=== PATIENT | female | born 1950 ===

== ENCOUNTER 2023-11-24 13:14 | Outpatient (CLI) | payer MEDICARE, BC, SELFPAY ==
--- OUTSIDE RECORDS SUMMARY | 2023-11-24 13:18 | XMS_ITS | Clinical Summary ---
[facility] Address [address] [place] [address] Care Team Providers Care Magneto Specialist Name Role Phone Arnel Dietz MD Primary Care Provider [phone] Source Comments You are receiving this document as you are listed as the primary care provider,follow-up provider, or the patient has been referred to you for consultation.This is in compliance with the Medicare and[facility] E[facility] Incentive [facility],which states Providers who transition their patient to another setting of careor provider of care or refers their patient to another provider of care shouldprovide summary care record for each transition of care or referral. [facility] Allergies No known active allergies Medications Medication Sig Dispensed Refills Start Date End Date Status alendronate (FOSAMAX) 70 MG tablet TAKE 1 TABLET BY MOUTH ONCE A WEEK FOR 28 DAYS 02/16/2020 Active sertraline (ZOLOFT) 50 MG tablet Take 50 mg by mouth daily. Active rosuvastatin (CRESTOR) 10 MG tablet Take 10 mg by mouth daily. Active Active Problems No known active problems Social History Tobacco Use Types Packs/Day Years Used Date Smoking Tobacco: Former Smokeless Tobacco: Never Sex and Gender Information Value Date Recorded Sex Assigned at Not on file Gender Identity Not on file Sexual Orientation Not on file Last Filed Vital Signs Vital Sign Reading Time Taken Comments Blood Pressure - - Pulse - - Temperature - - Respiratory Rate - - Oxygen Saturation - - Inhaled Oxygen Concentration - - Weight - - Height 149.9 cm (4' 11) 03/27/2020 10:47 AM BATCH WEIGHER Body Mass Index - - Plan of Treatment Health Maintenance Due Date Last Done Comments Colon Cancer Screening Plan Due 1950 Hep C Screening (Preventive Services) 1950 Medicare Annual Wellness Visit 1950 Mammogram 1950 Cholesterol 1997 Zoster/Shingles (1 of 2) 2002 Dexa 2017 COVID-19 Vaccine (3 - season) 2023 05/25/2020, 05/03/2020 Influenza (#1) 2023 11/15/2019, 01/30, 01/15/2018, Additional history exists RSV (1 - 1-dose 75+ series) 2027 DTaP/Tdap/Td (3 - Tdap) 06/27/2027 06/27/19 18, 04/15/2007, 10/18/1997 Pneumococcal 65+ Yrs Completed 09/08/2018, 06/27/19 18 HepA Aged Out No longer eligi ble based on patient's age to complete this topic HepB Aged Out No longer eligi ble based on patient's age to complete this topic Hib Aged Out No longer eligi ble based on patient's age to complete this topic IPV (Polio) Aged Out No longer eligi ble based on patient's age to complete this topic MCV4 Aged Out No longer eligi ble based on patient's age to complete this topic Care Teams Magneto Specialist Relationship Specialty Start Date End Date Arnel Dietz MD [address] [place] [address] PCP - General Family Practice 03/23/20
--- OUTSIDE RECORDS SUMMARY | 2023-11-24 13:18 | XMS_ITS | Clinical Summary ---
Author Organization [facility] Address [place], [place] [address] Care Team Providers Care Cornice Maker Name Role Phone Arnel Dietz MD Primary Care Provider [phone] Allergies No known active allergies Medications Medication Sig Dispensed Refills Start Date End Date Status rosuvastatin (CRESTOR) 10 mg tablet TAKE 1 TABLET BY MOUTH ONCE DAILY AT BEDTIME FOR 90 DAYS for 90 days Active sertraline (ZOLOFT) 50 mg tablet Take 1 Tablet by mouth once daily. Active alendronate (FOSAMAX) 70 mg tablet Take 1 tablet by mouth once a week for 84 Active cholecalciferol, Vitamin D3, 2,000 unit tablet 1 tab(s) orally once a day for 30 day(s) Active cranberry fruit extract (CRANBERRY CONCENTRATE ORAL) Take by mouth. Act augusto kristan Deleon/Brajwinder barclay (PROBIOTIC ACIDOPHILUS BEADS ORAL) Take by mouth. Active Social History Tobacco Use Types Packs/Day Years Used Date Smoking Tobacco: Former Cigarettes Smokeless Tobacco: Never Tobacco Cessation:Counseling Given: Not Answered Sex and Gender Information Value Date Recorded Sex Assigned at Not on file Gender Identity Not on file Sexual Orientation Not on file Obstetrics History Last Filed Vital Signs Vital Sign Reading Time Taken Comments Blood Pressure 119/64 12/14/2022 11:55 AM CDT Pulse 64 12/14/2022 11:55 AM CDT Temperature 36.5 ??C (97.7 ??F) 12/14/2022 1 1:55 AM CDT Respiratory Rate 16 12/14/2022 11:5 5 AM CDT Oxygen Saturation 98% 12/14/2022 11: 55 AM CDT Inhaled Oxygen Concentration - - Weight 70.2 kg (154 lb 11.2 oz) 023 12:00 PM CDT Height - - Body Mass Index - - Plan of Treatment Health Maintenance Due Date Last Done Comments Tdap 1963 Depression screening for age 12+ 1964 BMI (ht and wt on same day) for age 18+ 1970 Hepatitis C screening for ag e 18-79 1970 Tetanus booster 1972 Colonoscopy through age 75 1997 Lipids for age 45-75 1997 Mammogram for age 45-75 1997 Zoster (shingles) series for age 50+ (1 of 2) 2002 DEXA/DXA scan for age 65+ 2017 Pneumococcal series for age 65+ (1 of 1 - PCV) 2017 COVID-19 vaccine series (2023- season) 2023 07/29/2022, 03/10/2022, 06/14/2021, Additional history exists Influenza for age 65+ 11/01/2023 Care Teams Cornice Maker Relationship Specialty Start Date End Date Arnel Dietz MD [address] [place] [address] PCP - General Family Practice 12/14/22
== END 2023-11-24 13:15 | disposition home or self-care (01) ==
PROVIDERS: PCP Emergency Medicine; Visit Provider Emergency Medicine
DX: M81.0 Age-related osteoporosis without current pathological fracture (principal); E78.2 Mixed hyperlipidemia
CPT/HCPCS: 80048; 80061; 82306

== ENCOUNTER 2023-12-04 10:23 | Outpatient (CLI) | payer MEDICARE, BC, SELFPAY ==
--- OUTSIDE RECORDS SUMMARY | 2023-12-04 10:26 | XMS_ITS | Clinical Summary ---
[facility] Address [address] [address] Care Team Providers Care Occupational Therapy Manager Name Role Phone Arnel Dietz MD Primary Care Provider [phone] Source Comments You are receiving this document as you are listed as the primary care provider,follow-up provider, or the patient has been referred to you for consultation.This is in compliance with the Medicare and[facility] EHR Incentive Program,which states Providers who transition their patient to another setting of careor provider of care or refers their patient to another provider of care shouldprovide summary care record for each transition of care or referral. [facility] ([facility]) Allergies No known active allergies Medications Medication [...] 149.9 cm (4' 11) 03/27/2020 10:47 AM MANAGER RETAIL Body Mass Index - - Plan of [...] age to complete this topic Care Teams Occupational Therapy Manager Relationship Specialty Start Date End Date Arnel Dietz MD [address] [place] [address] PCP - General Family Practice 03/23/20
--- OUTSIDE RECORDS SUMMARY | 2023-12-04 10:27 | XMS_ITS | Clinical Summary ---
Author Organization [facility] Address [place], [place] [address] Care Team Providers Care Geography Teacher Name Role Phone Arnel Dietz MD Primary Care Provider [phone] Allergies No known active allergies Medications Medication [...] Influenza for age 65+ 11/01/2023 Care Teams Geography Teacher Relationship Specialty Start Date End Date Arnel Dietz MD [address] [place] [address] PCP - General Family Practice 12/14/22
--- NOTE | 2023-12-04 11:00 | CRLHL7_ITS ---
For Patients: As a result of the Century Cures Act, medical imaging exams and procedure reports are released immediately into your electronic medical record. You may view this report before your referring provider. If you have questions, please contact your health care provider. Indication: Lung cancer screening examination, former smoker with greater than 100 pack-year history Technique: Noncontrast low-dose CT of the chest with multiplanar reformats. Comparison: None Findings: Lungs: A few tiny 1 millimeter micronodules are present with no concerning nodule appreciated. Mild atelectasis and/or scarring. No consolidation. No effusion. No pneumothorax. Mediastinum: Trace pericardial effusion. Trace calcified aortic atherosclerosis. Lymph nodes: No gross lymphadenopathy. Upper abdomen: Unremarkable. Soft tissues: Unremarkable. Bones: Minimal degenerative changes. Impression: A few tiny 1 millimeter micronodules are present with no concerning nodule appreciated. Continued annual surveillance screening recommended (Lung-RADS 2). Please note that all CT scans at this facility use dose modulation, iterative reconstruction, and/or weight-based dosing when appropriate to reduce radiation dose to as low as reasonably achievable. Dictated by Danny Lopez MD @ 12/07/2023 8:46:25 PM (Electronically Signed)
== END 2023-12-04 10:24 | disposition home or self-care (01) ==
LOC: CT 10:24
PROVIDERS: PCP Emergency Medicine; Visit Provider Emergency Medicine
DX: Z12.2 Encounter for screening for malignant neoplasm of respiratory organs (principal); R91.8 Other nonspecific abnormal finding of lung field; F17.210 Nicotine dependence, cigarettes, uncomplicated; Z87.891 Personal history of nicotine dependence
CPT/HCPCS: 71271

== ENCOUNTER 2024-04-13 13:32 | Outpatient (CLI) | payer MEDICARE, BC, SELFPAY | END 2024-04-13 13:33 | disposition home or self-care (01) | LOC: RAD 13:35 | PROVIDERS: PCP Emergency Medicine; Visit Provider Emergency Medicine | DX: Z12.31 Encounter for screening mammogram for malignant neoplasm of breast (principal); Z13.820 Encounter for screening for osteoporosis; M81.0 Age-related osteoporosis without current pathological fracture | CPT/HCPCS: 77063; 77067; 77080 ==

== ENCOUNTER 2024-10-25 08:30 | Outpatient (RCR) | payer MEDICARE, BC, SELFPAY ==
--- NOTE | 2024-08-01 12:59 | OT.OPOE ---
OT Outpatient Ortho Eval OT Outpatient Ortho Eval* Start: 08/01/24 07:40 Freq: Status: Active Protocol: Document 08/01/24 07:42 JANNETTEOneyda (Rec: 08/01/24 12:57 MISTI [id number]) E-signed By Sydni Cueto OTR/L, CLT OT OP Ortho Eval Details Complexity Complexity Medium Insurance Information Insurance Blue Cross/Blue Shield,Medicare B Information Outpatient History/Precautions Current Condition/Medical Diagnosis Referring Provider Dr. Barak Camargo Medical Diagnoses S62.015A Closed nondisplaced fracture of distal pole of scaphoid bone of left wrist, initial encounter S62. 015A Treatment Diagnosis M25.632, Stiffness of L wrist M25.532, Pain in L wrist Date of Onset DOI 05/23/24 Other Precautions Patient was instructed return to Ortho office for follow-up in 6 weeks, at which time we will obtain repeat x-rays of the left wrist and scaphoid. Ortho Provider's Plan (from note on 07/18/24): Fracture is healing as expected. Wrist range of motion is limited as is to be expected. Thumb spica cast was discontinued today. Recommend occupational therapy and home exercise program for wrist range of motion exercises. Referral for occupational therapy was submitted today. She was instructed to use removable thumb spica brace for activities for the next few weeks. Other Conditions PMH includes but is not limited to: Muscle strain of right forearm (Acute) S56.911A - Strain of unspecified muscles, fascia and tendons at forearm level, right arm, initial encounter (ICD-10) Closed fracture of scaphoid of left wrist (Acute) S62.002A - Unspecified fracture of navicular [scaphoid] bone of left wrist, initial encounter for closed fracture (ICD-10) Fracture of scaphoid bone of left wrist (Acute) S62.002A - Unspecified fracture of navicular [scaphoid] bone of left wrist, initial encounter for closed fracture (ICD-10) Agatston coronary artery calcium score less than 100 ( Acute) 0 R93.1 - Abnormal findings on diagnostic imaging of heart and coronary circulation (ICD-10) Right foot pain (Acute) M79.671 - Pain in right foot (ICD-10) Family history of coronary artery disease (Acute) father bro Z82.49 - Family history of ischemic heart disease and other diseases of the circulatory system (ICD-10) Smoking greater than 20 pack years (Acute) age 21-66 x 1/2 ppd F17.210 - Nicotine dependence, cigarettes, uncomplicated (ICD-10) Former cigarette smoker (Acute) Z87.891 - Personal history of nicotine dependence (ICD- 10) Recurrent UTI (Acute) cranberry gel, N39.0 - Urinary tract infection, site not specified ( ICD-10) Eczema (Acute) L30.9 - Dermatitis, unspecified (ICD-10) Hyperlipidemia (Acute) Increase rosuvastatin December 2023 E78.5 - Hyperlipidemia, unspecified (ICD-10) Anxiety (Acute) F41.9 - Anxiety disorder, unspecified (ICD-10) Osteoporosis (Acute) M81.0 - Age-related osteoporosis without current pathological fracture (ICD-10) Depression (Acute) F32.A - Depression, unspecified (ICD-10) History of colon polyps (Acute) Home Medications: alendronate 70 mg PO QWEEK cholecalciferol (vitamin D3) 50 mcg PO QDAY ibuprofen (Advil) 400 mg PO Q8H rosuvastatin 20 mg PO QDAY sertraline 50 mg PO QDAY Medical/Functional History Medical History Yes Reviewed Prior Level of Patient lives alone, enjoys going to her camp [place] in [place] the summer [place] -Thursday at [facility] 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 Fully Indep with self cares and IADLs Social History Employment Status Retired Current Occupation semi retired, patient is self employed selling [employer] Critical Job Demands Pull,Lift,Overhead Reach Hobbies Spending time with her 3 adult children, 2 grandchildren Fitness None Ortho Subjective Subjective Subjective This patient is a 74-year-old [id number] female presenting to the Rehab clinic after a left scaphoid fracture that she developed after falling onto her outstretched hand on 05/23/24. She was treated conservatively with a thumb spica cast which was removed on 07/18/24 at her follow up Ortho visit. Now that patient is 10 weeks post from her initial injury, her deficits include: lack of AROM, muscle atrophy ( weakness in the L hand), difficulty with fine motor and coordination in the L hand, rotation movements with the L hand and anything that involves lifting/carrying with the L UE. 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 This work is very dexterity focused and bilateral heavy. Patient's personal goal is to resume normal every day tasks without pain and gain strength in the non dominant hand as it presently is very weak ( 43 lbs less social science research assistant strength than the R unaffected side). Patient reports having Tylenol daily (3x) for pain relief. Pain Assessment Pain Pain Yes Pain Comments 5/10 in the L hand/wrist with activity/movement Range of Motion and Strength Shoulder Range of Motion and Strength Shoulder Range of no impairments Motion and Strength Elbow/Forearm Range of Motion and Strength Elbow/Forearm Range no impairments of Motion and Strength Wrist Range of Motion and Strength Wrist Range of 35 degrees of L wrist flexion (in the R patient has 65 Motion and Strength degrees of flexion) 48 degrees in the L wrist for extension ( in the R patient has 75 degrees of extension) L supination 70 degrees L pronation is full L ulnar deviation is 18 degrees L radial deviation is 15 degrees Hand/Finger/Thumb Range of Motion and Strength Hand/Finger/Thumb EXAMINATION: Range of Motion and Left wrist was examined. No significant soft tissue Strength swelling of his deformity-very mild. No tenderness palpation of the anatomic snuffbox, scaphoid tubercle, but she did have some tenderness at the dorsum of the L wrist. Wrist range of motion was quite limited (see measurements in box above). Radial, ulnar, median, and axillary motor and sensory were intact. Thumb extension, thumb opposition, thumb IP flexion, intrinsics are all intact. Fingers are all warm and well perfused. Hand Pinch/Pig Sticker Strength Hand Pinch/Pig Sticker Strength Hand Pinch/Pig Sticker Left Hand,Right Hand Strength Left Hand Pig Sticker Strength 10 Position 1 in Elbow Flexion (lbs) Pig Sticker Strength 11 Position 2 in Elbow Extension (lbs) Lateral Pinch 4 Strength (lbs) Three Point Pinch ( 3 lbs) Tip Pinch Strength ( 3 lbs) Right Hand Pig Sticker Strength 53 Position 1 in Elbow Flexion (lbs) Pig Sticker Strength 55 Position 2 in Elbow Extension (lbs) Lateral Pinch 12 Strength (lbs) Three Point Pinch ( 9 lbs) Tip Pinch Strength ( 7.5 lbs) Upper Extremity Special Tests Upper Extremity Special Tests Comments Comments IMAGING: AP, lateral, oblique, and scaphoid views of left wrist performed in clinic today (07/18/2024) were reviewed. These images demonstrate a nondisplaced distal pole scaphoid fracture. Compared to x-rays obtained 2024, there has been interval sclerosis with no change in alignment. Fracture line remains faintly visible. OT Problems Problems Problems Decreased Strength,Decreased Range of Motion,Decreased Dexterity,Pain,Decreased Coordination,Lifting,Gripping, Pinching Problems Comments Difficulty with styling her hair, holding the blow dryer in the left hand, very hard to put deodorant with the left hand in the R arm pit. Very hard to lift/ carry objects with the L hand, rotation movements like opening a door, turning the lid of a jar, turning the steering wheel of her vehicle. Patient Potential Excellent Assessment Assessment Assessment This patient is a 74-year-old [id number]-wlgwllhl female presenting to the Rehab clinic after a left scaphoid fracture that she developed after falling onto her outstretched hand on 05/23/24. She was treated conservatively with a thumb spica cast which was removed on 07/18/24 at her follow up Ortho visit. Now that patient is 10 weeks post from her initial injury, her deficits include: lack of AROM, muscle atrophy ( weakness in the L hand), difficulty with fine motor and coordination in the L hand, rotation movements with the L hand and anything that involves lifting/carrying with the L UE. 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 This work is very dexterity focused and bilateral heavy. Patient's personal goal is to resume normal every day tasks without pain and gain strength in the non dominant hand as it presently is very weak ( 43 lbs less social science research assistant strength than the R unaffected side). PLAN: Occupational Therapy Treatment Plan - OP Potential Rehabilitation Excellent Potential Barriers Barriers to goal None Noted attainment Set Goals Goals Set with Yes Patient Goals Goals 1. Patient will verbalize 3 activity modifications to decrease abusive/overloading of the muscles, joints & tendons. 2. Patient will be able to hold the blow dryer in her L hand for durations >5 mins in order to style her hair in the mornings. 3. Patient will be discharged from therapy once their have achieved >90% of normal AROM and Strength in the effected limb. 4. Patient's daily pain level in the L wrist will not exceed >3/10 for a week long duration. 5. Patient will be able to use the L UE to turn her steering wheel with driving with greater ease and w/o increased pain in the L wrist. Target Date 12 weeks Treatment Plan Treatment Plan Evaluation,Edema Control,Joint Mobilization,Manual Therapy,Therapeutic Exercise,Therapeutic Activities, Self Care/Home Management,Education Expected Frequency 1-2x Week Expected Duration 12 weeks Home Program Home Program Home Program Initiated Home Program Access Code: [email or web address] Specifics URL: [email or web address] Date: 08/01/2024 Prepared by: Sydni Cueto Exercises - Seated AAROM Wrist Flexion/Extension with Clasped Hands - 1 x daily - 7 x weekly - 3 sets - 10 reps - Seated Forearm Pronation and Supination AROM - 1 x daily - 7 x weekly - 3 sets - 10 reps - Wrist AROM Radial and Ulnar deviation - 1 x daily - 7 x weekly - 3 sets - 10 reps - Wrist Tendon Gliding - 1 x daily - 7 x weekly - 3 sets - 10 reps - Seated Wrist Prayer Stretch - 1 x daily - 7 x weekly - 3 sets - 10 reps - Seated Finger MP Extension AROM with Blocking - 1 x daily - 7 x weekly - 3 sets - 10 reps - Finger Extension or EDC Glides: Pen Roll From Fist to Hook Fist - 1 x daily - 7 x weekly - 3 sets - 10 reps Certification Certification Statement I Certify That: Therapy Services Provided,Therapy Plan Established, Therapy Plan Reviewed Certification Information Clinic ID # [id number] Initial 08/01/24 Certification Date Recertification Due 10/30/24 Date Provider Signature Yes Required Provider Signature POC & Medical Necessity Shows Agreement With Physician NPI Number Write NPI# Here Physician Comment/ Comment or Changes Change Physician Signature Please Sign/Date Here & Date Requested
== END 2024-10-25 12:08 | disposition home or self-care (01) ==
PROVIDERS: Visit Provider Orthopaedic Surgery
DX: S62.015D Nondisplaced fracture of distal pole of navicular [scaphoid] bone of left wrist, subsequent encounter for fracture with routine healing (principal); Z51.89 Encounter for other specified aftercare
CPT/HCPCS: 97035; 97110; 97140; 97166; X5282